=== PATIENT | female | born 1965 | race Caucasian/White ===

== ENCOUNTER 2021-07-25 09:02 | Emergency (ER) | payer MEDICAID, SELFPAY ==
[2021-07-25 09:10] VITALS: BP 145/79; PULSE 61; RESP 18; TEMP 36.8; O2SAT 99; BMI 36.6
--- NOTE | 2021-07-25 09:33 | HMH.EDUTC ---
[facility] – [place] Disposition Clinical Impression: Radicular pain of right upper extremity Disposition: Home, Self-Care Condition on Discharge: Good Instructions: DI for Cervical Radiculopathy Additional Instructions: Take meds as prescribed Follow up with PCP if not improving Prescriptions: methylPREDNISolone [Medrol 4mg tab] 4 mg PO DIRECTED #21 tab Transmission Status: Pending to [facility] #[id number] Referrals: Provider,Referral, [Primary Care Provider] - Time of Disposition: 09:43 Medical Decision Making - Alfredo Inquiry Pt receiving controlled substance: No Vital Signs: 07/25/21 09:10 Temperature 98.2 F Temperature Source Oral Pulse Rate [Right Brachial] 61 Respiratory Rate 18 Blood Pressure [Right Arm] 145/79 H Blood Pressure Mean [Right Arm] 101 Blood Pressure Source [Right Arm] Automatic Cuff Blood Pressure Position [Right Arm] Sitting 02 Sat by Pulse Oximetry 99 Oxygen Delivery Method Room Air [facility] [place] HPI - General Stated complaint: rt wrist arm pain no accident Time Seen by Provider: 07/25/21 09:33 Mode of Arrival: Ambulatory Source of Information: Patient Limitations: No Limitations Description of Symptoms (Recalled from Triage Doc. by RN): PATEINT C/O PAIN TO RIGHT ARM AND WRIST. SHE STATES SHE BELIEVES SHE HYPEREXTENDED HER WRIST WHILE TAKING CARE OF HER MOTHER. SHE ALSO C/O BURNING TO RIGHT SHOULDER, BUT REPORTS A PREVIOUS ROTATOR CUFF TEAR THAT WAS NEVER FIXED. HEENT Symptoms (Recalled from RN notes): No Resp Symptoms (Recalled from RN notes): No Skin Symptoms (Recalled from RN notes): No MS Symptoms (Recalled from RN notes): Yes Functional Status (Recalled from RN notes): WNL - History of Present Illness Provider Complaint: Patient has had pain in right wrist for several weeks. 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 She has been wearing a wrist splint, but that has seemed to make it more painful. Flexion is particulary painful. Radiates to elbow. Has burning in right bicep. Has a right rotator cuff tear. Also has chronic neck pain. Has had epidurals in the past. Onset (ago): week(s) (3) Location: neck, right, upper extremity Radiation: extremity Severity: moderate Severity scale (1-10): 5 Quality: burning Consistency: intermittent Relieving factors: immobilization Exacerbating factors: movement Associated symptoms: denies other symptoms Treatments prior to arrival: splint - Related Data Home Medications Medication Instructions Recorded Confirmed albuterol sulfate 90 mcg/actuation 1 puff INHALATION Q6H 04/22/17 aerosol inhaler cetirizine 10 mg capsule 10 mg PO QDAY 04/22/17 fluticasone propionate 50 2 inh INHALATION BID 04/22/17 mcg/actuation blister powder for inhalation gabapentin 300 mg capsule 300 mg PO Q8H 04/22/17 lisinopril 20 mg tablet 20 mg PO QDAY 04/22/17 omeprazole 40 mg capsule,delayed 40 mg PO ONCE 04/22/17 release Previous Rx's Medication Instructions Recorded methylPREDNISolone [Medrol 4mg 4 mg PO DIRECTED #21 tab 07/25/21 tab] Allergies Allergy/AdvReac Type Severity Reaction Status Date / Time No Known Allergies Allergy Verified 04/22/17 11:12 - Worker's Comp Is this a Worker's Comp case?: No [facility] History - Hepatitis A Screen Drug use history?: No High risk sexual behaviors?: No History of sexually transmitted infection?: No Currently employed?: No Childcare worker?: No Do you have indoor plumbing?: Yes Do you have electricity?: Yes Attestation statement:: This patient has been screened for Hepatitis A risk factors. I have reviewed the patient's past medical history: Yes Medical History: Reports:: Hypertension Other Medical History: Reports: Arthritis Laterality Cases: Bilateral: Tonsillectomy Other Surgeries: Yes: Tubal Ligation, Other (hemorhoids) - Social History Smoking Status: Never smoker Alcohol Intake: never Family Hx
[2021-07-25 09:50] VITALS: BP 145/79; PULSE 61; RESP 18; TEMP 36.8; O2SAT 99
== END 2021-07-25 10:01 | disposition home or self-care (01) ==
PROVIDERS: Emergency Provider Physician Assistant
DX: M54.12 Radiculopathy, cervical region (principal); I10 Essential (primary) hypertension
CPT/HCPCS: 96372; 99213; G0463; J1040

== ENCOUNTER 2021-09-01 12:55 | Emergency (ER) | payer MEDICAID, SELFPAY ==
[2021-09-01 14:55] VITALS: BP 147/93; PULSE 72; RESP 17; TEMP 36.8; O2SAT 97; BMI 36.1
--- NOTE | 2021-09-01 16:01 | HMH.EDUTC ---
[facility] [place] Disposition Clinical Impression: Urticaria Disposition: Home, Self-Care Condition on Discharge: Good Instructions: Hives, DI for Hives Additional Instructions: Start oral steriods tomorrow Over the counter Benadryl may help with itching Follow up with Family Doctor if no improvement or any worsening of symptoms Return if needed Straight to ER if any life threatening symptoms Prescriptions: methylPREDNISolone [Medrol 4mg tab] 4 mg PO DIRECTED #21 tab Transmission Status: Received by [facility]/pharmacy #[id number] Referrals: Provider,Referral, MD [Primary Care Provider] - As needed Time of Disposition: 16:40 Medical Decision Making - Alfredo Inquiry Pt receiving controlled substance: No Alfredo was queried for this patient: No Vital Signs: 09/01/21 14:55 09/01/21 16:21 Temperature 98.2 F 98.2 F Temperature Source Oral Pulse Rate 72 Pulse Rate [Right Brachial] 72 Respiratory Rate 17 17 Blood Pressure 147/93 H Blood Pressure [Right Arm] 147/93 H Blood Pressure Mean [Right Arm] 111 Blood Pressure Source [Right Arm] Automatic Cuff Blood Pressure Position [Right Arm] Sitting 02 Sat by Pulse Oximetry 97 Oxygen Delivery Method Room Air Orders (Tests/Meds): ED MEDICATIONS Discontinued Medications Generic Name Dose Route Start Last Admin Trade Name Freq PRN Reason Stop Dose Admin Famotidine 20 mg 09/01/21 16:08 09/01/21 16:17 Famotidine 20mg Tablet PO 09/01/21 16:09 20 mg ONCE ONE Administration Methylprednisolone Sodium Succinate 125 mg 09/01/21 16:07 09/01/21 16:18 Methylprednisolone Sod Succ 125mg Vial IM 09/01/21 16:08 125 mg ONCE ONE Administration Medical Decision Narrative: rash much improved [facility] [place] HPI - General Stated complaint: rash Time Seen by Provider: 09/01/21 16:01 Mode of Arrival: Ambulatory Source of Information: Patient Limitations: No Limitations Description of Symptoms (Recalled from Triage Doc. by RN): PATIENT C/O RASH OVER BODY, HEADACHE, AND FEELS OFF X 2 DAYS. SHE IS CONCERNED SHE IS HAVING A REACTION TO MACROBID HEENT Symptoms (Recalled from RN notes): Yes Resp Symptoms (Recalled from RN notes): No Skin Symptoms (Recalled from RN notes): Yes MS Symptoms (Recalled from RN notes): No Functional Status (Recalled from RN notes): WNL - History of Present Illness Provider Complaint: Patient states that she was recently on macrobid and noticed she felt a little itchy shortly after starting it and on Wednesday after she took a dose she started itching and Wednesday she broke out in rash all over her abdomen and back State that she has been itching all over so she came in to get checked out - Related Data Home Medications Medication Instructions Recorded Confirmed albuterol sulfate 90 mcg/actuation 1 puff INHALATION Q6H 04/22/17 aerosol inhaler cetirizine 10 mg capsule 10 mg PO QDAY 04/22/17 fluticasone propionate 50 2 inh INHALATION BID 04/22/17 mcg/actuation blister powder for inhalation gabapentin 300 mg capsule 300 mg PO Q8H 04/22/17 lisinopril 20 mg tablet 20 mg PO QDAY 04/22/17 omeprazole 40 mg capsule,delayed 40 mg PO ONCE 04/22/17 release Previous Rx's Medication Instructions Recorded methylPREDNISolone [Medrol 4mg 4 mg PO DIRECTED #21 tab 07/25/21 tab] methylPREDNISolone [Medrol 4mg 4 mg PO DIRECTED #21 tab 09/01/21 tab] Allergies Allergy/AdvReac Type Severity Reaction Status Date / Time No Known Allergies Allergy Verified 04/22/17 11:12 - Worker's Comp Is this a Worker's Comp case?: No [facility] History - Hepatitis A Screen Attestation statement:: This patient has been screened for Hepatitis A risk factors. I have reviewed the patient's past medical history: Yes Medical History: Reports:: Hypertension Other Medical History: Reports: Arthritis Laterality Cases: Bilateral: Tonsillectomy Other Surgeries: Yes: Tubal Ligation, Other (hemorhoids) - Social History Smo
[2021-09-01 16:21] VITALS: BP 147/93; PULSE 72; RESP 17; TEMP 36.8; O2SAT 97
== END 2021-09-01 16:43 | disposition home or self-care (01) ==
PROVIDERS: Emergency Provider Nurse Practitioner
DX: L50.0 Allergic urticaria (principal); I10 Essential (primary) hypertension
CPT/HCPCS: 96372; 99212; G0463

== ENCOUNTER 2021-09-12 08:40 | Emergency (ER) | payer MEDICAID, SELFPAY ==
[2021-09-12 08:41] VITALS: BP 130/100; PULSE 117; RESP 20; TEMP 36.9; O2SAT 98; BMI 36.2
[2021-09-12 08:52] LABS: Microscopic, Urine URINE MICROSCOPIC (MICROSCOPIC)
[2021-09-12 08:56] LABS: Appearance,Urine CLOUDY (Clear); Blood, Urine TRACE-I (Negative); Color,Urine DK YELLOW (Yellow); Glucose,Urine (UA) Negative (Negative); Ketones,Urine TRACE (Negative); Leukocyte Esterase,Urine Negative (Negative); Nitrate,Urine POSITIVE (Negative); Protein,Urine 2+ (Negative); Specific Gravity, Urine >= 1.030 (1.005-1.030)
--- NOTE | 2021-09-12 09:03 | HMH.EDGENADL ---
ED Disposition Clinical Impression: Dehydration Vomiting Qualifiers: Vomiting type: unspecified Nausea presence: with nausea Qualified Code(s): R11.2 - Nausea with vomiting, unspecified UTI (urinary tract infection) Qualifiers: Urinary tract infection type: site unspecified Hematuria presence: without hematuria Qualified Code(s): N39.0 - Urinary tract infection, site not specified Disposition: Home, Self-Care Condition on Discharge: Good Instructions: DI for Nausea -- Adult, DI for Urinary Tract Infection (UTI) Additional Instructions: Keflex as prescribed. Continue taking Zofran as needed for nausea and vomiting. Additional instructions for URINARY TRACT INFECTION: Take antibiotic as prescribed. See your physician in 2-3 days for follow up and culture results. Return immediately if you have an uncontrollable fever greater than 102 degrees, severe back or abdominal pain, inability to urinate, or repetitive vomiting. Prescriptions: cephALEXin [cephALEXin 500mg capsule*] 500 mg PO Q6H #28 cap Transmission Status: Pending to [facility]/pharmacy #[id number] Referrals: Marjan Charlton APRN [Primary Care Provider] - - Critical Care Critical Care Time: No Attestation: On 09/12/21, the high probability of a clinically significant, sudden or life threatening deterioration of the following system(s) required my full and direct attention, intervention and personal management. The time I documented below is in addition to time spent performing reported procedures but includes the following listed in this critical care notation. Medical Decision Making - Alfredo Inquiry Pt receiving controlled substance: No Vital Signs: 09/12/21 08:41 09/12/21 09:10 09/12/21 09:40 Temperature 98.5 F Temperature Source Oral Pulse Rate 93 H 72 Pulse Rate [Radial] 117 H Respiratory Rate 20 Blood Pressure 133/76 111/88 Blood Pressure [Right Arm] 130/100 H Blood Pressure Mean 95 98 Blood Pressure Mean [Right Arm] 110 Blood Pressure Position [Right Arm] Sitting 02 Sat by Pulse Oximetry 98 100 100 Oxygen Delivery Method Room Air - Lab Data Lab Results 09/12/21 08:45: Urine Color Dk yellow, Urine Appearance Cloudy, Urine pH 5.0, Ur Specific [place] >= 1.030, Urine Protein 2+, Urine Glucose (UA) Negative, Urine Ketones Trace, Urine Blood Trace-i, Urine Nitrate Positive, Urine Bilirubin 2+ A, Urine Urobilinogen 1.0, Ur Leukocyte Esterase Negative, Urine RBC None, Urine WBC Occasional, Ur Squamous Epith Cells 3-5, Urine Bacteria 2+, Urine Mucus Trace 09/12/21 08:57: WBC 11.2 H, RBC 5.62 H, Hgb 17.8 H, Hct 53.1 H, MCV 94.4, MCH 31.6 H, MCHC 33.5, RDW 13.3, Plt Count 275, MPV 8.8, Neut % (Auto) 60.2, Lymph % (Auto) 28.2, [place] % (Auto) 5.5, Eos % (Auto) 2.4, Baso % (Auto) 3.7 H, Neut # (Auto) 6.7, Lymph # (Auto) 3.2, [place] # (Auto) 0.6, Eos # (Auto) 0.3, Baso # (Auto) 0.4 H 09/12/21 08:57: Sodium 138, Potassium 3.7, Chloride 103, Carbon Dioxide 25, Anion Gap 13.7, BUN 27 H, Creatinine 0.90, Estimated Creat Clear 109, Estimated GFR 65, Est GFR ( Amer) 78, Glucose 168 H, Calcium 10.5 H, Total Bilirubin 1.0, AST 52 H, ALT 53, Alkaline Phosphatase 120, Total Protein 8.3 H, Albumin 4.7, Globulin 3.6 H, Albumin/Globulin Ratio 1.3 09/12/21 09:00: SARS-CoV-2 (PCR) Not detected, Influenza A Untype (PCR) Not detected, Influenza Type B (PCR) Not detected Result diagrams: 09/12/21 08:57 09/12/21 08:57 Orders (Tests/Meds): ED MEDICATIONS Generic Name Dose Route Start Last Admin Trade Name Freq PRN Reason Stop Dose Admin Sodium Chloride 1,000 mls @ 999 mls/hr 09/12/21 09:00 09/12/21 09:02 Sod Chlor 0.9% 1000ml Bag IV 09/12/21 10:00 999 mls/hr .Q1H1M DEWAYNE Administration Discontinued Medications Generic Name Dose Route Start Last Admin Trade Name Freq PRN Reason Stop Dose Admin Ketorolac Tromethamine 30 mg 09/12/21 08:49 09/12/21 09:02 Ketorolac 30mg/Ml Vial IV 09/12/21 08:50 30 mg ONCE ONE Admi
[2021-09-12 09:06] LABS: Coronavirus 19, PCR Not Detected (NotDetected); Influenza A, PCR Not Detected (NotDetected); Influenza B, PCR Not Detected (NotDetected)
[2021-09-12 09:10] VITALS: BP 133/76; PULSE 93; O2SAT 100
[2021-09-12 09:10] LABS: Bilirubin,Urine 2+ (Negative)
[2021-09-12 09:11] LABS: Bacteria,Urine 2+ /lpf; Mucus,Urine Trace /lpf; WBC,Urine Occasional #/hpf (0-3)
[2021-09-12 09:11] LABS: Basophils # 0.4 K/mm3 (0-0.2); Basophils % 3.7 % (0.1-2.0); Eosinophils # 0.3 K/mm3 (0.0-0.4); Eosinophils % 2.4 % (0.1-12.0); Hematocrit 53.1 % (37.0-47.0); Hemoglobin 17.8 g/dL (12.2-16.2); Lymphocytes # 3.2 K/mm3 (0.7-4.5); Lymphocytes % 28.2 % (10-50); Mean Corpuscular HGB Conc 33.5 g/dL (31.8-35.4); Mean Corpuscular Hemoglobin 31.6 pg (27.0-31.2); Mean Corpuscular Volume 94.4 fl (81-99); Mean Platelet Volume 8.8 fl (7.4-10.4); Monocytes # 0.6 K/mm3 (0.1-1.0); Monocytes % 5.5 % (1.7-9.3); Neutrophils # 6.7 K/mm3 (1.8-7.8); Neutrophils % 60.2 % (37.0-80.0); Platelet Count 275 K/mm3 (142-424); Red Blood Count 5.62 M/mm3 (4.20-5.40); Red Cell Distribution Width 13.3 % (11.5-17.5); White Blood Count 11.2 K/mm3 (4.8-10.8)
[2021-09-12 09:12] LABS: Chloride 103 mmol/L (98-107); Sodium 138 mmol/L (136-145)
[2021-09-12 09:13] LABS: Potassium 3.7 mmoL/L (3.5-5.1)
[2021-09-12 09:15] LABS: Alanine Aminotransferase 53 U/L (12-78); Albumin Level 4.7 g/dl (3.5-5.0); Albumin/Globulin Ratio 1.3 (1.1-1.8); Alkaline Phosphatase 120 U/L (38-126); Anion Gap 13.7 mEq/L (5-15); Aspartate Amino Transferase 52 U/L (14-36); Blood Urea Nitrogen 27 mg/dl (7-17); Carbon Dioxide 25 mmol/L (22.0-30.0); Creatinine Clearance Estimated 109 mL/min (50-200); Estimated Glomerular Filt Rate 65 ml/min (>60); GFR (African American) 78 ML/MIN (>60); Globulin 3.6 g/dL (1.3-3.2); Total Protein,Serum 8.3 g/dl (6.3-8.2)
[2021-09-12 09:16] LABS: Calcium 10.5 mg/dl (8.4-10.2); Glucose 168 mg/dl (74-100)
--- NOTE | 2021-09-12 09:20 | PC.NURSE ---
pt states some relief of nausea and pain with meds given
[2021-09-12 09:40] VITALS: BP 111/88; PULSE 72; O2SAT 100
--- NOTE | 2021-09-12 09:40 | PC.NURSE ---
checked on pt at this time, pt states no needs at this time, offered pt warm blanket, she declined. will continue to monitor
[2021-09-12 10:01] VITALS: BP 132/78; PULSE 98; RESP 18; TEMP 36.9; O2SAT 99
== END 2021-09-12 10:03 | disposition home or self-care (01) ==
PROVIDERS: Emergency Provider Emergency Medicine; PCP Nurse Practitioner Family
DX: E86.0 Dehydration (principal); R11.2 Nausea with vomiting, unspecified; N39.0 Urinary tract infection, site not specified; Z88.8 Allergy status to other drugs, medicaments and biological substances; I10 Essential (primary) hypertension; M19.90 Unspecified osteoarthritis, unspecified site
CPT/HCPCS: 80053; 81001; 85025; 87086; 96365; 96375; 99284; C9803; J2405; U0003; U0005

== ENCOUNTER → 2022-02-23 08:30 | Outpatient (CLI) | payer MEDICAID, SELFPAY ==
--- NOTE | 2022-02-23 08:46 | XR_ITS ---
FINAL REPORT TECHNIQUE: Chest PA & Lateral CLINICAL HISTORY: RT PULMONARY NODULE FINDINGS: 2 views of the chest were performed. The heart size is normal. The mediastinum is within normal limits. There are calcified right hilar lymph nodes. There is a calcified granuloma in the right mid lung. The left lung is clear. There are no pleural effusions. There is no pneumothorax. The bony thorax appears intact. IMPRESSION: No acute cardiopulmonary process. Calcified granuloma in the right mid lung. Reviewed, Interpreted and Dictated by Jhonny Arita MD Transcribed by Bere Sepulveda Authenticated and [facility]
== END ==
PROVIDERS: PCP Nurse Practitioner Family; Visit Provider Nurse Practitioner Family
DX: R91.1 Solitary pulmonary nodule (principal)
CPT/HCPCS: 71046

== ENCOUNTER 2022-04-07 10:05 | Emergency (ER) | payer MEDICAID, SELFPAY ==
[2022-04-07 10:06] VITALS: BP 150/74; PULSE 88; RESP 18; TEMP 37.2; O2SAT 99; BMI 36.6
--- NOTE | 2022-04-07 10:13 | PC.NURSE ---
pt ambulatory to restroom without complications, UA sent to lab
[2022-04-07 10:15] VITALS: BP 150/74; PULSE 97; O2SAT 98
[2022-04-07 10:18] LABS: Microscopic, Urine URINE MICROSCOPIC (MICROSCOPIC)
[2022-04-07 10:20] LABS: Appearance,Urine CLEAR (Clear); Blood, Urine 3+ (Negative); Color,Urine YELLOW (Yellow); Glucose,Urine (UA) Negative (Negative); Ketones,Urine 1+ (Negative); Leukocyte Esterase,Urine TRACE (Negative); Nitrate,Urine Negative (Negative); Protein,Urine Negative (Negative); Specific Gravity, Urine >= 1.030 (1.005-1.030); Urobilinogen,Urine 0.2 EU/dl (0.2)
[2022-04-07 10:31] VITALS: BP 166/101; PULSE 78; O2SAT 97
[2022-04-07 10:33] LABS: Bilirubin,Urine 1+ (Negative)
--- NOTE | 2022-04-07 10:33 | PC.NURSE ---
DR. PERKINS AT BEDSIDE
--- NOTE | 2022-04-07 10:35 | HMH.EDGENADL ---
Discharge Plan Disposition Patient Disposition: Home, Self-Care Condition: Good Prescriptions Prescriptions: New Paxlovid (EUA) 300 mg (150 mg x 2)-100 mg tablets,dose pack See Rx Instructions .Route .COMPLEX Qty: 30 0RF Rx Instructions: take TWO 150 mg tablets of nirmatrelvir with ONE 100 mg tablet of ritonavir twice daily for 5 days No Action lisinopril 20 mg tablet 20 mg PO QDAY gabapentin 300 mg capsule 300 mg PO Q8H omeprazole 40 mg capsule,delayed release(DR/EC) 40 mg PO ONCE cetirizine [All Day Allergy (cetirizine)] 10 mg capsule 10 mg PO QDAY albuterol sulfate [Ventolin HFA] 90 mcg/actuation HFA aerosol inhaler 1 puff INHALATION Q6H fluticasone propionate 50 mcg/actuation blister with device 2 inh INHALATION BID peg 3350-electrolytes [Golytely] 236-22.74-6.74 -5.86 gram recon soln 240 ml PO Q10M Qty: 4000 0RF Rx Instructions: until fecal effluent is clear methylprednisolone 4 MG tablet 4 mg PO DIRECTED Qty: 21 0RF Rx Instructions: Take as directed on package instructions methylprednisolone 4 MG tablet 4 mg PO DIRECTED Qty: 21 0RF Rx Instructions: Take as directed on package instructions Start on 09/02/21 cephalexin 500 MG capsule 500 mg PO Q6H Qty: 28 0RF Referrals Follow up/Referrals: Marjan Charlton APRN [Primary Care Provider] - See instructions Activity Restrictions/Add. Instructions Additional Instructions/Restrictions: Paxlovid as prescribed. ADDITIONAL INSTRUCTIONS FOR COVID-19: Rest, drink plenty of fluids. Tylenol or Ibuprofen for fever and/or aches and pains. Monitor your symptoms. IF YOU HAVE AN EMERGENCY WARNING SIGN (INCLUDING TROUBLE BREATHING), SEEK EMERGENCY MEDICAL CARE IMMEDIATELY. COVID-19 Isolation: People with COVID-19 should isolate for 5 days. Then if they are asymptomatic (no symptoms) or their symptoms are resolving (without fever for 24 hours), follow that by 5 days of wearing a mask when around others to minimize the risk of infecting people you encounter. If you test positive for COVID-19 and never develop symptoms, day 0 is the day of your positive viral test (based on the date you were tested) and day 1 is the first full day after your positive test. If you develop symptoms after testing positive, your 5-day isolation period must start over. Day 0 is your first day of symptoms. Day 1 is the first full day after your symptoms developed. What to do: Stay in a separate room from other household members, if possible. Use a separate bathroom, if possible. Avoid contact with other members of the household and pets. Don?t share personal household items, like cups, towels, and utensils. Wear a mask when around other people if able. Clinical Impressions Clinical Impression: COVID-19 virus infection Instructions Patient Instructions: DI for COVID-19 (Suspected or Confirmed ) Discharge ED Provider: Craig Guerrero General Adult HPI General Chief complaint: Upper Respiratory Infection Stated complaint: back pain, vomiting, possible UTI, KUMAR, fever,dizzy Time Seen by Provider: 04/07/22 10:29 History of Present Illness HPI narrative: Patient states she has been sick for couple days. She has fever, body aches, headache, cough, vomiting without diarrhea, crampy lower abdominal pain, low back pain and right flank pain, urinary frequency. Also feels like she might be dehydrated. Related Data Home Medications Medication Instructions Recorded Confirmed albuterol sulfate 90 mcg/actuation 1 puff inhalation Q6H 04/22/17 aerosol inhaler (Ventolin HFA) cetirizine 10 mg capsule (All Day 10 mg PO QDAY 04/22/17 Allergy (cetirizine)) fluticasone propionate 50 2 inh inhalation BID 04/22/17 mcg/actuation blister powder for inhalation gabapentin 300 mg capsule 300 mg PO Q8H 04/22/17 lisinopril 20 mg tablet 20 mg PO QDAY 04/22/17 omeprazole 40 mg capsul
--- NOTE | 2022-04-07 10:36 | XR_ITS ---
FINAL REPORT CLINICAL HISTORY: cough, fever COMPARISON: 02/23/2022 FINDINGS: TWO-VIEW CHEST The heart size is normal. The mediastinum is normal. There are medial right base opacities of uncertain etiology, may represent localized infiltrate or possible mass. Findings are worse since the prior. There is no pneumothorax. IMPRESSION: Worsening medial right lung base opacity as above. Recommend additional follow-up radiographs or CT. Reviewed, Interpreted and Dictated by Abiel Schmidt III, MD Transcribed by Cecelia Sheppard Authenticated and [facility]
--- NOTE | 2022-04-07 10:36 | CT_ITS ---
FINAL REPORT CLINICAL HISTORY: R flank pain FINDINGS: Axial CT images of the abdomen and pelvis were obtained without intravenous contrast. Coronal reformatted images were also obtained.This study was performed with techniques to keep radiation doses as low as reasonably achievable (ALARA). Individualized dose reduction techniques using automated exposure control or adjustment of mA and/or kV according to the patient's size were employed. Abdomen: There is mild atelectasis or scarring in the right lower lobe. There is no evidence of renal stone or hydronephrosis.The liver, spleen and pancreas have an unremarkable, unenhanced appearance. No inflammatory process is identified. There is a small umbilical hernia containing fat. There is a small supraumbilical hernia containing fat only. There are mild vascular calcifications. Pelvis: The appendix appears normal. Images of the pelvis reveal no evidence of ureteral dilation or ureteral stone.No mass or abnormal fluid collection is identified. There are multiple descending and sigmoid diverticula without evidence of diverticulitis. IMPRESSION: No renal or ureteral stone, or hydronephrosis. No mass or inflammatory process. Reviewed, Interpreted and Dictated by Abiel Schmidt III, MD Transcribed by Bere Sepulveda Authenticated and [facility]
[2022-04-07 10:37] VITALS: BP 173/74; PULSE 79; O2SAT 98
[2022-04-07 10:46] LABS: Influenza A, PCR Not Detected (NotDetected); Influenza B, PCR Not Detected (NotDetected)
--- NOTE | 2022-04-07 10:47 | PC.NURSE ---
PT MEDICATED PER [facility], NO NEEDS AT THIS TIME
[2022-04-07 10:51] LABS: Basophils # 0.1 K/mm3 (0-0.2); Basophils % 0.6 % (0.1-2.0); Eosinophils # 0.1 K/mm3 (0.0-0.4); Eosinophils % 0.9 % (0.1-12.0); Hematocrit 44.3 % (37.0-47.0); Hemoglobin 15.2 g/dL (12.2-16.2); Lymphocytes # 1.5 K/mm3 (0.7-4.5); Lymphocytes % 12.5 % (10-50); Mean Corpuscular HGB Conc 34.4 g/dL (31.8-35.4); Mean Corpuscular Hemoglobin 31.3 pg (27.0-31.2); Monocytes # 0.6 K/mm3 (0.1-1.0); Monocytes % 4.8 % (1.7-9.3); Neutrophils # 9.6 K/mm3 (1.8-7.8); Neutrophils % 81.1 % (37.0-80.0); Platelet Count 205 K/mm3 (142-424); Red Blood Count 4.87 M/mm3 (4.20-5.40); Red Cell Distribution Width 12.9 % (11.5-17.5); White Blood Count 11.8 K/mm3 (4.8-10.8)
[2022-04-07 10:53] LABS: Bacteria,Urine Trace /lpf; Squamous Epithelial Cell,Urine Occasional #/hpf (0-5)
[2022-04-07 11:25] LABS: Coronavirus 19, PCR Detected (NotDetected)
[2022-04-07 11:28] LABS: Chloride 107 mmol/L (98-107); Sodium 138 mmol/L (136-145)
[2022-04-07 11:29] LABS: Potassium 3.8 mmoL/L (3.5-5.1)
[2022-04-07 11:31] LABS: Alanine Aminotransferase 18 U/L (12-78); Alkaline Phosphatase 105 U/L (38-126); Anion Gap 12.8 mEq/L (5-15); Aspartate Amino Transferase 26 U/L (14-36); Bilirubin,Total 0.5 mg/dl (0.2-1.3); Blood Urea Nitrogen 18 mg/dl (7-17); Calcium 10.3 mg/dl (8.4-10.2); Carbon Dioxide 22 mmol/L (22.0-30.0); Creatinine Clearance Estimated 140 mL/min (50-200); Estimated Glomerular Filt Rate 86 ml/min (>60); GFR (African American) 104 ML/MIN (>60); Glucose 121 mg/dl (74-100); Lipase 30 U/L (23-300)
[2022-04-07 11:32] LABS: Albumin Level 4.4 g/dl (3.5-5.0); Albumin/Globulin Ratio 1.4 (1.1-1.8); Globulin 3.1 g/dL (1.3-3.2); Total Protein,Serum 7.5 g/dl (6.3-8.2)
--- NOTE | 2022-04-07 11:53 | PC.NURSE ---
DR PERKINS AT BEDSIDE
[2022-04-07 12:00] VITALS: BP 106/61; PULSE 83; RESP 16; O2SAT 98
[2022-04-07 12:10] VITALS: BP 106/61; PULSE 71; RESP 17; TEMP 37; O2SAT 98
== END 2022-04-07 12:10 | disposition home or self-care (01) ==
PROVIDERS: Emergency Provider Emergency Medicine; PCP Nurse Practitioner Family
DX: U07.1 COVID-19 (principal); R51.9 Headache, unspecified; R50.9 Fever, unspecified; R10.31 Right lower quadrant pain; R11.2 Nausea with vomiting, unspecified; M79.10 Myalgia, unspecified site; R05.9 Cough, unspecified; I10 Essential (primary) hypertension; K21.9 Gastro-esophageal reflux disease without esophagitis; E78.5 Hyperlipidemia, unspecified; Z79.51 Long term (current) use of inhaled steroids; Z79.52 Long term (current) use of systemic steroids; Z79.899 Other long term (current) drug therapy; Z88.8 Allergy status to other drugs, medicaments and biological substances
CPT/HCPCS: 71046; 74176; 80053; 81001; 83690; 85025; 96361; 96374; 96375; 99284; C9803; J2405; U0003; U0005

== ENCOUNTER → 2022-04-21 09:42 | Outpatient (CLI) | payer MEDICAID, SELFPAY ==
--- NOTE | 2022-04-21 09:45 | XR_ITS ---
FINAL REPORT CLINICAL HISTORY: shoulder pain FINDINGS: RIGHT SHOULDER 3 views of the right shoulder were obtained. There is no acute fracture or dislocation. There is mild degenerative change of the acromioclavicular joint. There is no soft tissue abnormality. IMPRESSION: Mild degenerative change of the acromioclavicular joint. No acute bony abnormality. Reviewed, Interpreted and Dictated by Abiel Schmidt III, MD Transcribed by Bere Sepulveda Authenticated and [facility]
== END ==
PROVIDERS: PCP Nurse Practitioner Family; Visit Provider Orthopaedic Surgery
DX: M25.511 Pain in right shoulder (principal)
CPT/HCPCS: 73030

== ENCOUNTER 2022-07-16 13:16 | Emergency (ER) | payer MEDICAID, SELFPAY ==
[2022-07-16 13:17] VITALS: BP 133/79; PULSE 79; RESP 19; TEMP 36.6; O2SAT 99; BMI 38.6
--- NOTE | 2022-07-16 13:24 | HMH.EDGENADL ---
Discharge Plan Disposition Patient Disposition: Home, Self-Care Prescriptions Prescriptions: No Action lisinopril 20 mg tablet 20 mg PO QDAY gabapentin 300 mg capsule 300 mg PO Q8H omeprazole 40 mg capsule,delayed release(DR/EC) 40 mg PO ONCE cetirizine [All Day Allergy (cetirizine)] 10 mg capsule 10 mg PO QDAY albuterol sulfate [Ventolin HFA] 90 mcg/actuation HFA aerosol inhaler 1 puff INHALATION Q6H fluticasone propionate 50 mcg/actuation blister with device 2 inh INHALATION BID peg 3350-electrolytes [Golytely] 236-22.74-6.74 -5.86 gram recon soln 240 ml PO Q10M Qty: 4000 0RF Rx Instructions: until fecal effluent is clear methylprednisolone 4 MG tablet 4 mg PO DIRECTED Qty: 21 0RF Rx Instructions: Take as directed on package instructions Paxlovid (EUA) 300 mg (150 mg x 2)-100 mg tablets,dose pack See Rx Instructions .Route .COMPLEX Qty: 30 0RF Rx Instructions: take TWO 150 mg tablets of nirmatrelvir with ONE 100 mg tablet of ritonavir twice daily for 5 days methylprednisolone 4 MG tablet 4 mg PO DIRECTED Qty: 21 0RF Rx Instructions: Take as directed on package instructions Start on 09/02/21 cephalexin 500 MG capsule 500 mg PO Q6H Qty: 28 0RF Referrals Follow up/Referrals: Marjan Charlton APRN [Primary Care Provider] - See instructions Activity Restrictions/Add. Instructions Additional Instructions/Restrictions: Take Tylenol and/or ibuprofen as needed for pain please follow-up with orthopedic surgery if your pain continues for an outpatient MRI for further evaluation of your knee. Clinical Impressions Clinical Impression: Contusion of knee, right Discharge ED Provider: Stephen Brink General Adult HPI General Chief complaint: Extremity Injury, Lower Stated complaint: AO 4/6 Right knee swollen, with leg pain Time Seen by Provider: 07/16/22 13:24 History of Present Illness HPI narrative: 56-year-old female presenting with right knee pain following trauma patient states that she was coming down from attic stairs missed the last stair hyperextended her knee with a twisting injury and significant pain at the distal femur knee proximal tibia region. She has been able to bear weight but with some difficulty and pain. She took some Tylenol prior to arrival and states that she is unable to take anti-inflammatory medications. She has not had any significant swelling. She did state that she has some old abrasions on the anterior knee from a recent injury on the same knee. Related Data Home Medications Medication Instructions Recorded Confirmed albuterol sulfate 90 mcg/actuation 1 puff inhalation Q6H 04/22/17 04/21/22 aerosol inhaler (Ventolin HFA) cetirizine 10 mg capsule (All Day 10 mg PO QDAY 04/22/17 04/21/22 Allergy (cetirizine)) fluticasone propionate 50 2 inh inhalation BID 04/22/17 04/21/22 mcg/actuation blister powder for inhalation gabapentin 300 mg capsule 300 mg PO Q8H 04/22/17 04/21/22 lisinopril 20 mg tablet 20 mg PO QDAY 04/22/17 04/21/22 omeprazole 40 mg capsule,delayed 40 mg PO ONCE 04/22/17 04/21/22 release Previous Rx's Medication Instructions Recorded methylprednisolone 4 mg tablet 4 mg PO DIRECTED #21 tabs 07/25/21 methylprednisolone 4 mg tablet 4 mg PO DIRECTED #21 tabs 09/01/21 cephalexin 500 mg capsule 500 mg PO Q6H #28 caps 09/12/21 peg 3350-electrolytes 236 240 ml PO Q10M #4,000 mL 03/25/22 gram-22.74 gram-6.74 gram-5.86 gram solution (Golytely) nirmatrelvir 300 mg (150 mg See Rx Instructions .Route 04/07/22 x2)-ritonavir 100 mg tablet,dose .COMPLEX #30 tabs pack(EUA) (Paxlovid) Allergies Allergy/AdvReac Type Severity Reaction Status Date / Time nitrofurantoin Allergy Verified 04/21/22 11:07 [facility] Disclaimer: The information contained in this section may have been updated after the patient was seen, as this information can be updated by
--- NOTE | 2022-07-16 13:27 | XR_ITS ---
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 Pain w swelling FINDINGS: RIGHT KNEE 3 views of the right knee were obtained. There is no acute fracture or dislocation. Visualized joint spaces are normally aligned. There is mild to moderate osteophyte formation along the undersurface of the patella. There is narrowing of the patellofemoral joint. There is an ossific density superior to the patella which appears chronic and measures 1.6 x 0.8 cm in transverse and craniocaudal dimensions. There is an irregular density in the marrow space of the tibia which is probably due to an enchondroma. This measures 5.6 cm in greatest dimension. Soft tissues are unremarkable. IMPRESSION: Moderate changes of osteoarthritis at the patellofemoral joint. Probable enchondroma. Reviewed, Interpreted and Dictated by Jhonny Arita MD Transcribed by Bere Sepulveda Authenticated and [facility]
[2022-07-16 15:27] VITALS: BP 139/79; PULSE 83; RESP 19; TEMP 36.8; O2SAT 97
== END 2022-07-16 15:55 | disposition home or self-care (01) ==
PROVIDERS: Emergency Provider Student in an Organized Health Care Education/Training Program; PCP Nurse Practitioner Family
DX: S80.01XA Contusion of right knee, initial encounter (principal)
CPT/HCPCS: 73562; 99283; 99284